=== PATIENT | male | born 1940 | race Caucasian/White ===

== ENCOUNTER 2024-02-25 12:48 | Outpatient (OUT) | payer MEDICARE, SELFPAY ==
[2024-02-25 12:55] LABS: Hemoglobin 14.8 g/dL (14.0-18.0)
--- NOTE | 2024-02-25 14:29 | RT_ITS ---
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 Findings were considered accurate and reproducible, with exception of DLCO which did not meet ATS standards. Both pre- and post-bronchodilator values utilized for spirometry. Spirometry (based on pre-bronchodilator values): -FEV1/FVC: Reduced @ 52% -FEV1: Moderately reduced @ 65% -FVC: Normal @ 90% -There is a positive bronchodilator response in FEV1 and FVC. Lung volumes by plethysmography: -RV: Increased @ 129% -TLC: Normal @ 93% Diffusion capacity: -DLCO: Severe reduction @ 41% when corrected for Hb 14.8g/dL Flow-volume loop: -Moderate obstructive pattern Flow-pressure loop: ???Asthmatic pattern Impressions: -Moderate obstructive pattern in spirometry with a positive bronchodilator response. Increased RV suggests air trapping. Severe diffusion impairment. Overall study suggests COPD with a bronchodilator response or asthma-COPD overlap. Clinical correlation required. Clinical correlation required. Electronically Signed On 02-27-2024 9:34:06 EDT by Alvarado Victor
--- NOTE | 2024-02-25 15:19 | CT_ITS ---
The [address] [address] Patient Name: PRISCILLA PINA MRN: [id number] date: 1940 Sex: M Assigned Patient Location: CARD Current Patient Location: Accession/Order Number: [id number] Exam Date: 02/25/2024 15:50 Report Date: 02/26/2024 07:46 At the request of: PARI IBRAHIM Procedure: CT chest high res EXAMINATION: CT chest high res HISTORY: Pulmonary Fibrosis J84.10, Ground Glass Opacity COMPARISON: No relevant comparison available. TECHNIQUE: Axial images were obtained at 10 mm intervals during inspiration and expiration in the supine and prone positions. No IV contrast given. Dose reduction techniques were achieved by using automated exposure control and/or adjustment of mA and/or kV according to patient size and/or use of iterative reconstruction technique. FINDINGS: LUNGS: Moderate emphysematous changes with apical predominance. Moderate bronchiectasis predominantly involving the lower lobes. Mild peripheral fibrosis/honeycombing. No air trapping, acute infiltrates, or suspicious nodules. PLEURA: No mass, effusion, or pneumothorax. ESTELLA: No mass or adenopathy. MEDIASTINUM: No mass or adenopathy. HEART: No significant enlargement or pericardial effusion.. Coronary arteries: Mild AORTA: No aneurysm.. CHEST WALL: No mass or axillary adenopathy LIMITED ABDOMEN: No suspicious findings. Limited images of the upper abdomen. OTHER: Negative. CT/CT chest high res IMPRESSION: 1. Mild-moderate pulmonary fibrosis, bronchiectasis, and emphysematous changes. 2. No appreciable acute infiltrates. Electronically authenticated by: TAYLOR SYED Date: 02/26/2024 07:46
[2024-02-25] MEDS: ALBUTEROL SULFATE 2.5 MG/3 ML VIAL NEB IH (15:32)
== END 2024-02-25 12:49 | disposition home or self-care (01) ==
LOC: CARD 12:48
PROVIDERS: PCP Family Medicine; Visit Provider Internal Medicine
DX: J43.2 Centrilobular emphysema (principal); J84.10 Pulmonary fibrosis, unspecified; R91.8 Other nonspecific abnormal finding of lung field
CPT/HCPCS: 36415; 71250; 85018; 94060; 94726; 94729